=== PATIENT | female | born 1990 ===

== ENCOUNTER 2017-04-21 00:10 | Emergency (ER) | payer SELFPAY ==
[2017-04-21 00:20] VITALS: O2SAT 100
--- NOTE | 2017-04-21 00:28 | C.PDOC ---
History Of Present Illness patient states she developed some abdominal discomfort yesterday, which worsen prior to arrival . Denies nausea( had some yesterday) no vomiting. Tolerating po. No f/c Time Seen by Provider: 04/21/17 00:28 Chief Complaint (Nursing): Abdominal Pain History Per: Patient History/Exam Limitations: no limitations Onset/Duration Of Symptoms: Days Current Symptoms Are (Timing): Still Present Context: Other Severity: Mild Pain Scale Rating Of: 3 Location Of Pain/Discomfort: Diffuse Radiation Of Pain To:: None Quality Of Discomfort: Dull, Cramping Associated Symptoms: denies: Fever, Chills, Nausea, Vomiting Exacerbating Factors: None Alleviating Factors: None Last Bowel Movement: Yesterday Recent travel outside of the [place]: No Additional History Per: Patient Abnormal Vaginal Bleeding: No Past Medical History Reviewed: Historical Data, Nursing Documentation, Vital Signs Vital Signs: Last Vital Signs Temp 98.6 F 04/21/17 00:17 Pulse 68 04/21/17 00:17 Resp 20 04/21/17 00:17 BP 131/85 04/21/17 00:17 Pulse Ox 100 04/21/17 02:50 - Medical History PMH: Anemia Family History: States: No Known Family Hx - Social History Hx Tobacco Use: Yes Hx Alcohol Use: Yes Hx Substance Use: Yes - Immunization History Hx Tetanus Toxoid Vaccination: No Hx Influenza Vaccination: No Hx Pneumococcal Vaccination: No Review Of Systems Constitutional: Negative for: Fever, Chills ENT: Negative for: Throat Pain Cardiovascular: Negative for: Chest Pain Respiratory: Negative for: Shortness of Breath Gastrointestinal: Positive for: Abdominal Pain. Negative for: Nausea, Vomiting Genitourinary: Negative for: Dysuria Musculoskeletal: Negative for: Back Pain Skin: Negative for: Rash Neurological: Negative for: Weakness Psych: Negative for: Anxiety Physical Exam - Physical Exam Appears: Non-toxic, No Acute Distress Skin: Warm, Dry Head: Normacephalic Eye(s): bilateral: Normal Inspection Oral Mucosa: Moist Neck: Supple Chest: Symmetrical Cardiovascular: Rhythm Regular Respiratory: No Rales, No Rhonchi, No Wheezing Gastrointestinal/Abdominal: Soft, Tenderness (mild, diffuse), No Distention, No Guarding, No Rebound Back: No CVA Tenderness Extremity: Normal ROM Extremity: Bilateral: Atraumatic Pulses: Left Dorsalis Pedis: Normal, Right Dorsalis Pedis: Normal Neurological/Psych: Oriented x3, Normal Speech, Normal Cognition Gait: Steady ED Course And Treatment - Laboratory Results Result Diagrams: 04/21/17 00:42 04/21/17 00:42 O2 Sat by Pulse Oximetry: 100 Pulse Ox Interpretation: Normal - Radiology CXR: Interpreted by Me, Viewed By Me CXR Interpretation: No: Infiltrates, Fracture, Pnemothorax - Other Rad obstr X-Ray: Interpreted by Me, Viewed By Me Interpretation: no free air, lots of stool and gas Reevaluation Time: 02:48 Reassessment Condition: Improved Disposition Counseled Patient/Family Regarding: Studies Performed, Diagnosis, Need For Followup, Rx Given - Disposition Referrals: [facility] [Outside] [facility] [Outside] Disposition: HOME/ ROUTINE Disposition Time: 00:28 Condition: FAIR Prescriptions: Dicyclomine [Dicyclomine HCl] 10 mg PO QID #20 cap Polyethylene Glycol 3350 [Miralax] 17 gm PO DAILY #270 ml Instructions: Abdominal Pain (ED) Forms: [facility] (Swiss), Work Excuse - Clinical Impression Clinical Impression: Constipation, Abdominal pain
[2017-04-21] MEDS ORDERED: Sodium Chloride 0.9% 1,000 ML IV ONE (00:31)
[2017-04-21] MEDS ORDERED: Sodium Chloride 0.9% 1,000 ML ONE (00:44)
[2017-04-21 00:48] LABS: BASO % 0.7 % (0.0-2.0); EOS # 0.1 K/uL (0.0-0.7); EOS % 1.3 % (0.0-4.0); HEMATOCRIT 40.7 % (34.0-47.0); LYMPH # 2.1 K/uL (1.0-4.3); LYMPH % 44.5 % (20.0-40.0); MEAN CELL VOLUME 89.8 fL (81.0-99.0); MEAN CORPUSCULAR HEMOGLOBIN 30.7 pg (27.0-31.0); MEAN CORPUSCULAR HGB CONC 34.2 g/dL (33.0-37.0); MEAN PLATELET VOLUME 10.6 fL (7.2-11.7); MONO # 0.3 K/uL (0.0-0.8); MONO % 7.3 % (0.0-10.0); NRBC % 0.1 % (0.0-2.0); RED CELL DISTRIBUTION WIDTH 13.1 % (11.5-14.5); WHITE BLOOD COUNT 4.8 K/uL (4.8-10.8)
[2017-04-21 00:52] LABS: CHLORIDE 99 mmol/L (98-107)
[2017-04-21 00:53] LABS: RBC URINE 2 /hpf (0-3); URINE BILIRUBIN NEGATIVE (NEGATIVE); URINE BLOOD NEGATIVE (NEGATIVE); URINE COLOR Yellow (YELLOW); URINE GLUCOSE (UA) NORMAL (Normal); URINE KETONE NEGATIVE (NEGATIVE); URINE LEUKOCYTE ESTERASE NEG Leu/uL (Negative); URINE PROTEIN NEGATIVE (NEGATIVE); URINE UROBILINOGEN NORMAL mg/dL (0.2-1.0); WBC URINE 1 /hpf (0-5)
[2017-04-21 00:54] LABS: POTASSIUM 3.7 mmol/L (3.6-5.2); SODIUM 134 mmol/L (132-148)
[2017-04-21 00:56] LABS: ALKALINE PHOSPHATASE 64 U/L (38-126); ALT/SGPT 52 U/L (9-52); AST/SGOT 29 U/L (14-36); BILIRUBIN,TOTAL 0.6 mg/dL (0.2-1.3); BLOOD UREA NITROGEN 14 mg/dL (7-17); CARBON DIOXIDE 28 mmol/L (22-30); GFR AFRICAN-AMERICAN > 60; TOTAL PROTEIN 8.5 g/dL (6.3-8.3)
[2017-04-21 00:57] LABS: CALCIUM 9.3 mg/dl (8.6-10.4); GLUCOSE,RANDOM 87 mg/dL (65-105)
[2017-04-21 04:02] VITALS: BP 114/71; PULSE 71; RESP 18; TEMP 97.8
--- NOTE | 2017-04-21 13:04 | RAD ---
PROCEDURE: Radiographs of the chest and abdomen (obstructive series) HISTORY: abd pain COMPARISON: No prior. TECHNIQUE: AP radiograph of the chest, with upright and supine radiographs of the abdomen. FINDINGS: CHEST: Lungs: Clear. Cardiovascular: Normal size heart. No pulmonary vascular congestion. Pleura: No pleural fluid. No pneumothorax. Other findings: None. ABDOMEN AND PELVIS: Bowel: Mild constipation, otherwise unremarkable bowel gas pattern. No evidence of mechanical obstruction. Free air: None. Bones: Unremarkable. Other findings: None. IMPRESSION: Mild constipation, otherwise unremarkable radiographs of chest and abdomen. No evidence of mechanical bowel obstruction.
== END 2017-04-21 04:02 | disposition home or self-care (01) ==
LOC: C.ER 00:10
DX: K59.00 Constipation, unspecified (principal); R10.9 Unspecified abdominal pain
CPT/HCPCS: 74022; 80053; 81001; 83690; 84703; 85025; 96361; 96374; 96375; 99284; J1885; J7040

== ENCOUNTER 2017-07-09 14:52 | Emergency (ER) | payer BC ==
--- NOTE | 2017-07-09 16:31 | C.PDOC ---
History Of Present Illness 26 y/o female complaining of body aches, chills, congestion, cough, and sore throat for one day. She denies fever at home, or taking any medications at home. No SOB, no difficultly breathing or swallowing. Denies headache, seizures , or neck pain. There are no other complaints. Time Seen by Provider: 07/09/17 15:38 Chief Complaint (Nursing): ENT Problem History Per: Patient History/Exam Limitations: no limitations Onset/Duration Of Symptoms: Days (1) Recent travel outside of the [place]: No Additional History Per: Patient Past Medical History Vital Signs: Last Vital Signs Temp 98.3 F 07/09/17 17:21 Pulse 79 07/09/17 17:21 Resp 18 07/09/17 17:21 BP 122/76 07/09/17 17:21 Pulse Ox 96 07/09/17 17:21 - Medical History PMH: Anemia Family History: States: Unknown Family Hx - Social History Hx Tobacco Use: Yes Hx Alcohol Use: Yes Hx Substance Use: Yes - Immunization History Hx Tetanus Toxoid Vaccination: No Hx Influenza Vaccination: No Hx Pneumococcal Vaccination: No Review Of Systems Except As Marked, All Systems Reviewed And Found Negative. Constitutional: Positive for: Chills, Weakness, Malaise. Negative for: Fever ENT: Positive for: Throat Pain Respiratory: Positive for: Cough. Negative for: Shortness of Breath Physical Exam - Physical Exam Appears: Well, No Acute Distress Skin: Normal Color, Warm, Dry, No Rash Head: Atraumatic, Normacephalic Eye(s): bilateral: Normal Inspection, EOMI Ear(s): Bilateral: Normal Nose: Normal, No Discharge Oral Mucosa: Moist Tongue: Normal Appearing Throat: Normal, No Erythema, No Exudate, No Drooling Neck: Normal, Normal ROM, Supple Lymphatic: Normal Exam Chest: Symmetrical Cardiovascular: Rhythm Regular Respiratory: Normal Breath Sounds, No Accessory Muscle Use Gastrointestinal/Abdominal: Soft, No Tenderness Neurological/Psych: Oriented x3, Normal Speech ED Course And Treatment O2 Sat by Pulse Oximetry: 100 - Radiology CXR: Interpreted by Me, Viewed By Me CXR Interpretation: Yes: No Acute Disease Progress Note: Plan: -CXR. - Motrin. On re-evaluation, Patient is resting comfortably, tolerating PO, and is afebrile at this time. Clinical signs and symptoms are not suggestive of sepsis, meningitis, UTI, pneumonia, intra- abdominal pathology, or cellulitis. Patient will be discharged home, and instructed to follow up with his/her physician in 1-2 days without fail. Patient was instructed to return for any worsening symptoms, persistent fever, neck pain, rash, abdominal pain, or vomiting. Disposition - Disposition Disposition: HOME/ ROUTINE Disposition Time: 16:47 Condition: STABLE Additional Instructions: Follow up with your primary medical doctor or clinic in 2-5 days for further evaluation. Take medications as prescribed. Return to the emergency department at any time if symptoms persist or worsen. Prescriptions: Guaifen/Dextromethorphan/PE [Mucinex Fast-Max Congest-Cough] 1 each PO Q6 #20 tablet Ibuprofen [Motrin] 400 mg PO Q6 PRN #20 tab PRN Reason: Fever Instructions: Upper Respiratory Infection (ED) Forms: [facility] (Sudanese) - Clinical Impression Clinical Impression: URI (upper respiratory infection) - Scribe Statement The provider has reviewed the documentation as recorded by the Scribe (Adriana Jay)
--- NOTE | 2017-07-09 16:40 | RAD ---
HISTORY: pain COMPARISON: No prior. TECHNIQUE: Chest PA and lateral FINDINGS: LUNGS: No active pulmonary disease. PLEURA: No significant pleural effusion identified. No pneumothorax apparent. CARDIOVASCULAR: Normal. OSSEOUS STRUCTURES: No significant abnormalities. VISUALIZED UPPER ABDOMEN: Normal. OTHER FINDINGS: None. IMPRESSION: No active disease.
[2017-07-09 17:22] VITALS: BP 122/76; PULSE 79; RESP 18; TEMP 98.3
[2017-07-09 17:55] VITALS: O2SAT 100
== END 2017-07-09 17:22 | disposition home or self-care (01) ==
LOC: C.ER 14:52
DX: J06.9 Acute upper respiratory infection, unspecified (principal)